=== PATIENT | female | born 1955 | race Caucasian/White ===

== ENCOUNTER → 2020-09-06 09:49 | Outpatient (BNVA) | payer MEDICARE, SELFPAY | PROVIDERS: Family Provider Nurse Practitioner; PCP Nurse Practitioner; Visit Provider Nurse Practitioner Family | DX: Z20.822 Contact with and (suspected) exposure to COVID-19 (principal) | CPT/HCPCS: 87635 ==

== ENCOUNTER → 2020-12-03 09:34 | Outpatient (BNVA) | payer OTHER, SELFPAY | PROVIDERS: Family Provider Nurse Practitioner; PCP Nurse Practitioner; Visit Provider Nurse Practitioner Family | DX: F41.9 Anxiety disorder, unspecified (principal); R07.89 Other chest pain | CPT/HCPCS: 71046; 80053; 80061; 84443; 84484; 85025 ==

== ENCOUNTER 2021-02-01 06:52 | Outpatient (CLI) | payer MEDICARE, SELFPAY ==
[2021-02-01 07:03] VITALS: BMI 23.3
--- NOTE | 2021-02-01 07:23 | NMCV_ITS ---
NM sayda perf SPECT r/s* [id number] Kasie Murcia Age: 65 Gender: F : 1955 Exam Date: 02/01/2021 07:58 Ordering Phys: Sophia Ramírez MD ([email or web address]) Technologist: BO Martínez Exam Location: [facility] Indications: SHORTNESS OF BREATH/ CHEST PAIN STRESS TEST Please see separate stress test report in [facility] for full findings IMAGE PROTOCOL Rest/Stress 1 Exercise Day Radiopharmaceutical Dose (mCi) Administration Site Administered by Rest: Tc-99m 10.9 IV BO Martínez Sestamibi Stress:Tc-99m 32.8 IV BO Mcpherson Sestamibi Rest: 01-Feb-2021 60 Discovery 630 Stress: 01-Feb-2021 15 Discovery 630 Radiopharmaceutical was injected at 100 % maximum heart rate. Images obtained in supine and prone position. SPECT RESULTS Technical Quality: Excellent Raw Data Analysis: Normal Image Corrections: No attenuation or motion correction applied Summed Stress Score: 4 Summed Rest Score: 2 Summed Difference Score: 2 PERFUSION FINDINGS Small area of decreased tracer uptake in the mid and apical anterior and mid inferolateral region with some reversibility in the inferolateral region FUNCTIONAL RESULTS (calculated via Gated SPECT) Stress Image LV EF (%): 91 Stress EDV (mL):44 TID: 0.71 Stress ESV (mL):4 FUNCTIONAL FINDINGS: Segmental wall motion analysis revealing no gross wall motion abnormalities IMPRESSIONS 1. Myocardial perfusion imaging revealing small area of decreased uptake in the inferior and inferolateral region with some reversibility, suggesting myocardial scarring with a small area of ischemia in the distribution of the left circumflex artery(ischemic burden 2% of the total myocardium) 2. Normal LV ejection fraction of 91%. 3. LV wall motion analysis revealing no gross wall motion normalities. 4. Normal LV volume No similar previous studies are available for comparison Dr Sophia Ramírez MD [facility]ACC (Electronically Signed) Final Date: 02 February 2021 20:01 S
--- NOTE | 2021-02-01 07:23 | ECG_ITS ---
[facility] Test Date: 2021-02-01 Pat Name: Kasie Murcia Department: Room: Gender: Female Mitten Stitcher: Chuyita Hay : 1955 Requested By: Sophia Ramírez Order Number: [id number] Abigail MD: Sophia Ramírez M.D. Interpretive Statements NAME OF STUDY: EXERCISE SESTAMIBI STRESS TEST INDICATION: Chest Pain, PROCEDURE: The baseline electrocardiogram showed normal sinus rhythm with poor R wave progression. Occasional supraventricular ectopics. Some nonspecific T wave changes.. At the baseline, the patient's blood pressure was 144/91 mm Hg with a heart rate of 88. The patient exercised for 7 minutes and 14 seconds on a standard Pj protocol. Patient attained a maximum heart rate of 161 beats per minute(103%) of the maximum predicted heart rate) with a blood pressure at the peak exercise of 178/102 mm Hg. The EKG at the peak exercise revealed no significant changes. Patient did not have any chest pain or any significant arrhythmis with the exercise Sestamibi was injected 1 minute prior to the peak exercise During the recovery phase, there were no new changes. Blood pressure at the end of the recovery phase was 129/87 mm Hg with a heart rate of 100 per minute. CONCLUSION: 1. No significant EKG changes with the treadmill exercise 2. No exercise-induced chest pain or cardiac arrhythmia 3. Good exercise tolerance, attained a maximum of 10.2 METs 4. Sestamibi/Sestamibi perfusion results pending; see separate report. Electronically Signed On 02-04-2021 1:46:01 CROP CONSULTANT by Sophia Ramírez M.D. [id number]
[2021-02-01 09:00] VITALS: BP 129/87; PULSE 100
== END 2021-02-01 06:53 | disposition home or self-care (01) ==
LOC: CDL 06:53
PROVIDERS: PCP Nurse Practitioner Family; Visit Provider Internal Medicine Cardiovascular Disease
DX: R07.9 Chest pain, unspecified (principal)
CPT/HCPCS: 78452; 93017; A9500

== ENCOUNTER 2021-02-17 15:15 | Outpatient (CLI) | payer MEDICARE, SELFPAY ==
--- NOTE | 2021-02-17 15:45 | USCV_ITS ---
Kasie Murcia Age: 65 Gender: F : 1955 Exam Date: 02/17/2021 15:36 Ordering Phys: Sophia Ramírez MD ([email or web address]) Technologist: Heavenly Stokes [place] [facility] [place]ication: DYSPENA BP: 110 / 74 HR: 75 Rhythm: Sinus Technical Quality: Adequate MEASUREMENTS (Male / Female) Normal Values 2D ECHO LV Diastolic Diameter PLAX 3.6 cm 4.2 - 5.9 / 3.9 - 5.3 cm LV Systolic Diameter PLAX 2.3 cm IVS Diastolic Thickness 0.9 cm 0.6 - 1.0 / 0.6 - 0.9 cm IVS Systolic Thickness 1.5 cm LVPW Diastolic Thickness 1.1 cm 0.6 - 1.0 / 0.6 - 0.9 cm LVPW Systolic Thickness 1.3 cm LVOT Diameter 2.0 cm LV Ejection Fraction 2D Teich 66.4 % LV Ejection Fraction MOD 2C 73.3 % LV Ejection Fraction 2C AL 73.6 % LA Diameter 2.1 cm LA Width 2.5 cm LA Height 2.9 cm RA Width 2.6 cm RA Height 3.4 cm Aorta at Sinotubular Diameter 2.3 cm M-MODE Aortic Annulus Diameter 2.4 cm LA Ao Ratio MM 0.8 MV E Point Septal Separation 0.2 cm DOPPLER AV Peak Velocity 141.0 cm/s LVOT Peak Velocity 115.0 cm/s AV Area Cont Eq vti 2.6 cm squared AV Area Cont Eq pk 2.6 cm squared MV Peak Velocity 90.0 cm/s MV Area PHT 3.1 cm squared Mitral E to A Ratio 1.3 MV E' Velocity 48.5 cm/s Mitral E to MV E' Ratio 7.6 Mitral E to LV E' Lateral Ratio 7.7 Mitral E to LV E' Septal Ratio 7.6 TR Peak Velocity 287.1 cm/s TR Peak Gradient 33.0 mmHg TR Mean Velocity 274.4 cm/s TR Mean Gradient 29.8 mmHg TR Velocity Time Integral 98.3 cm TV Peak E Velocity 49.0 cm/s Right Atrial Pressure 3.0 mmHg Pulmonary Artery Systolic Pressu 36.0 mmHg PV Peak Velocity 82.0 cm/s RV Acceleration Time 0.1 s RV Ejection Time 0.3 s RV AcT/ET 0.4 FINDINGS Left Ventricle Normal left ventricular size and systolic function, EF 71 %. Mild left ventricular hypertrophy. No regional wall motion abnormalities. Right Ventricle The right ventricle is normal in size and function. Right Atrium The right atrium is normal in size. Left Atrium The left atrium is normal in size. Mitral Valve Mild-moderate mitral valve regurgitation. Aortic Valve Thickened aortic valve. Tricuspid Valve Mild tricuspid valve regurgitation. Pulmonic Valve No gross abnormalities noted Pericardium Normal pericardium without effusion. Aorta Normal ascending aorta dimension. CONCLUSIONS Normal left ventricular size and systolic function, EF 71 %. Mild left ventricular hypertrophy. No regional wall motion abnormalities. Mild-moderate mitral valve regurgitation. Thickened aortic valve. Mild tricuspid valve regurgitation. There is no pericardial effusion. There are no intracardiac masses. No previous study is available for comparison. Dr Sophia Ramírez MD [facility] (Electronically Signed) Final Date: 17 February 2021 19:52 S
== END 2021-02-17 15:16 | disposition home or self-care (01) ==
LOC: RAD 15:24
PROVIDERS: PCP Nurse Practitioner Family; Visit Provider Internal Medicine Cardiovascular Disease
DX: R06.00 Dyspnea, unspecified (principal); R94.31 Abnormal electrocardiogram [ECG] [EKG]; I08.3 Combined rheumatic disorders of mitral, aortic and tricuspid valves
CPT/HCPCS: 93306

== ENCOUNTER → 2022-06-21 08:57 | Outpatient (BNVA) | payer MEDICARE, SELFPAY | PROVIDERS: PCP Nurse Practitioner Family; Visit Provider Nurse Practitioner Family | DX: I10 Essential (primary) hypertension (principal) | CPT/HCPCS: 80053; 80061; 84443; 85025 ==

== ENCOUNTER → 2023-06-18 10:30 | Outpatient (BNVA) | payer MEDICARE, SELFPAY | PROVIDERS: PCP Nurse Practitioner Family; Visit Provider Nurse Practitioner Family | DX: R00.0 Tachycardia, unspecified (principal); I10 Essential (primary) hypertension; R07.89 Other chest pain | CPT/HCPCS: 80053; 80061; 84443; 85025 ==

== ENCOUNTER 2023-07-03 07:59 | Outpatient (CLI) | payer MEDICARE, SELFPAY ==
--- NOTE | 2023-07-03 08:30 | MM_ITS ---
WS: [id number] BILATERAL SCREENING DIGITAL TOMOSYNTHESIS MAMMOGRAM WITH CAD HISTORY: Z12.39 - Encounter for other screening for malignant neop... COMPARISON: 10/13/2009 Bilateral CC and MLO views with tomosynthesis and synthetic mammography submitted. Computer aided det ection analyzed. Breast composition: The breasts are heterogeneously dense, which may obscure small masses. No suspici ous masses, microcalcifications or architectural distortion. Arterial calcifications in each breast. MM/[place] [id number] IMPRESSION: BI-RADS: 2-Benign FOLLOW UP: 1 Year Follow-up
== END 2023-07-03 08:00 | disposition home or self-care (01) ==
LOC: RAD 08:00
PROVIDERS: PCP Nurse Practitioner Family; Visit Provider Nurse Practitioner Family
DX: Z12.31 Encounter for screening mammogram for malignant neoplasm of breast (principal)
CPT/HCPCS: 77063; 77067

== ENCOUNTER 2023-07-03 08:00 | Outpatient (CLI) | payer MEDICARE, SELFPAY ==
--- NOTE | 2023-07-03 10:00 | CT_ITS ---
WS: [id number] LDCT LUNG CANCER SCREENING TECHNIQUE: Noncontrast CT of the chest with coronal and sagittal reformatted images. CLINICAL INFORMATION: Z12.2 - Encounter for screening for malignant neoplasm of... COMPARISON: None. DLP: 46.60 mGy.cm DIvol: Mean CTDIvol: 0.80 (mGy) All CT scans at [facility] use at least one of these dose optimization techniques: automat ed exposure control; mA and/or kV adjustment per patient size (includes targeted exams where dose is matched to clinical indication); or iterative reconstruction. FINDINGS: No acute pulmonary infiltrates. No suspicious pulmonary parenchymal abnormalities. Fibrosis in the lung apices. Aortic calcification. No mediastinal or hilar lymphadenopathy. No axillary lymphadenopathy. Adrenal g lands are normal. Small esophageal hernia. Noncontrast pancreas is normal. Small splenule. Mild thora cic curve. Mild thoracic kyphosis. CT/CT lung screening [id number] IMPRESSION: LUNG-RADS: 1-Negative FOLLOW UP: 12 Month: Continue annual screening with LDCT
== END 2023-07-03 08:01 | disposition home or self-care (01) ==
LOC: RAD 08:00
PROVIDERS: PCP Nurse Practitioner Family; Visit Provider Nurse Practitioner Family
DX: Z12.2 Encounter for screening for malignant neoplasm of respiratory organs (principal); F17.200 Nicotine dependence, unspecified, uncomplicated
CPT/HCPCS: 71271

== ENCOUNTER → 2024-08-13 08:44 | Outpatient (BNVA) | payer MEDICARE, SELFPAY | PROVIDERS: PCP Nurse Practitioner Family; Visit Provider Clinical Nurse Specialist Adult Health | DX: I10 Essential (primary) hypertension (principal); E55.9 Vitamin D deficiency, unspecified; K21.9 Gastro-esophageal reflux disease without esophagitis; F41.9 Anxiety disorder, unspecified; F17.200 Nicotine dependence, unspecified, uncomplicated | CPT/HCPCS: 80053; 80061; 82306; 83735; 84443; 85025 ==

== ENCOUNTER → 2024-09-24 10:32 | Outpatient (BNVA) | payer MEDICARE, SELFPAY | PROVIDERS: PCP Nurse Practitioner Family; Visit Provider Clinical Nurse Specialist Adult Health | DX: N39.0 Urinary tract infection, site not specified (principal) | CPT/HCPCS: 81000; 87086 ==

== ENCOUNTER → 2024-11-05 09:37 | Outpatient (BNVA) | payer MEDICARE, SELFPAY | PROVIDERS: PCP Clinical Nurse Specialist Adult Health; Visit Provider Clinical Nurse Specialist Adult Health | DX: N39.0 Urinary tract infection, site not specified (principal) | CPT/HCPCS: 81000; 87086 ==

== ENCOUNTER → 2024-11-19 11:01 | Outpatient (BNVA) | payer MEDICARE, SELFPAY | PROVIDERS: PCP Clinical Nurse Specialist Adult Health; Visit Provider Family Medicine | DX: N30.00 Acute cystitis without hematuria (principal) | CPT/HCPCS: 81000 ==

== ENCOUNTER 2024-12-08 08:26 | Outpatient (CLI) | payer MEDICARE, SELFPAY ==
--- NOTE | 2024-12-08 09:14 | US_ITS ---
WS: [id number] URINARY BLADDER ULTRASOUND HISTORY: CHRONIC CYSTITIS COMPARISON: None available. Urinary bladder is mild to moderately distended. No intraluminal filling defect. No free fluid adjacent to the urinary bladder. Bladder Wall Thickness: 0.4 cm. Bladder Prevoid: 6.1 cm x 6.8 cm x 5.4 cm. Prevoid volume: 116.7 ml. Bladder Postvoid: 1.0 cm x 2.6 cm x 3.4 cm. Postvoid volume: 4.9 ml. US/US bladder [id number] IMPRESSION: 1. Urinary bladder is only mildly to moderately distended. Incomplete distenti on for this ultrasound exam. 2. No postvoid volume residual.
== END 2024-12-08 08:27 | disposition home or self-care (01) ==
LOC: RAD 08:27
PROVIDERS: PCP Clinical Nurse Specialist Adult Health; Visit Provider Family Medicine
DX: N30.90 Cystitis, unspecified without hematuria (principal); N32.89 Other specified disorders of bladder
CPT/HCPCS: 76857; 87400